=== PATIENT | female | born 1990 | race African-American/Black ===

== ENCOUNTER 2023-02-21 07:58 | Emergency (ER) | payer MEDICAID ==
[~2023-02-21] VITALS: Ht 167.6 cm; Wt 91.0 kg
[2023-02-21 08:07] VITALS: BP 139/96; PULSE 115; RESP 18; TEMP 98.4; O2SAT 99
== END 2023-02-21 09:07 | disposition left against medical advice (07) ==
LOC: ER 07:58
DX: R45.851 Suicidal ideations (principal)
CPT/HCPCS: 99283